=== PATIENT | female | born 1995 | race Caucasian/White ===

== ENCOUNTER 2017-05-04 09:57 | Emergency (ER) | payer BC, OTHER ==
[2017-05-04] MEDS ORDERED: Ketorolac 30 MG/ML SDV IM ONE (10:15)
--- NOTE | 2017-05-04 10:24 | EDM.PDOC ---
ED HPI GENERAL MEDICAL PROBLEM - General Chief Complaint: Lower Extremity Injury/Pain Stated Complaint: RT LEG PAIN Time Seen by Provider: 05/04/17 10:10 Source of Information: Reports: Patient History Limitations: Reports: No Limitations - History of Present Illness INITIAL COMMENTS - FREE TEXT/NARRATIVE: This 22 yo female patient reports to the ED with pain in her right buttocks radiating down her right lateral thigh to her medial posterior calf. The patient reports she noticed some increased pain over the past 3 days, but her pain got much worse today. The patient reports she was unable to walk this morning due to pain and muscle spasms. The patient has been attempting to do stretching exercises, but has continued to have increased discomfort. The patient has not taken any medications for temporary symptom relief. The patient reports a previous injury to the same area previously. 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 Onset: Gradual Duration: Day(s): (3), Constant, Getting Worse Location: Reports: Lower Extremity, Right Quality: Reports: Ache, Sharp, Other (muscle spasms) Severity: Moderate Improves with: Reports: None Context: Reports: Activity Right Leg Pain Score (Numeric/FACES): 8 - Related Data Allergies Allergy/AdvReac Type Severity Reaction Status Date / Time No Known Allergies Allergy Verified 05/04/17 10:07 Home Meds: Home Meds Control Pill 05/04/17 [History] Cholecalciferol (Vitamin D3) [Vitamin D] 5,000 unit PO 05/04/17 [History] Review of Systems - Review of Systems Review Of Systems: ROS reveals no pertinent complaints other than HPI. ED EXAM, GENERAL - Physical Exam Exam: See Below Exam Limited By: No Limitations General Appearance: Alert, WD/WN, Moderate Distress, Thin Eye Exam: Bilateral Eye: EOMI, Normal Inspection, PERRL Ears: Normal External Exam, Normal Canal, Hearing Grossly Normal, Normal TMs Nose: Normal Inspection, Normal Mucosa, No Blood Throat/Mouth: Normal Inspection, Normal Lips, Normal Teeth, Normal Gums, Normal Oropharynx, Normal Voice, No Airway Compromise Head: Atraumatic, Normocephalic Respiratory/Chest: No Respiratory Distress, Normal Breath Sounds, No Accessory Muscle Use Cardiovascular: Normal Peripheral Pulses, Regular Rate, Rhythm, No Edema GI/Abdominal: Normal Bowel Sounds, Soft, Non-Tender, No Organomegaly, No Distention, No Abnormal Bruit, No Mass (Female) Exam: Deferred Rectal (Female) Exam: Deferred Back Exam: Decreased Range of Motion (right lower extremity), Muscle Spasm ( right glut and posterior thigh), Other (The patient was only able to get to about 10 degrees on a straight leg raise.) Extremities: Leg Pain (right posterior buttocks), Limited Range of Motion Neurological: Alert, Oriented, CN II-XII Intact, Normal Cognition, Abnormal Gait (due to pain and muscle spasm in right buttocks) Psychiatric: Normal Affect, Normal Mood Skin Exam: Warm, Dry, Intact, Normal Color, No Rash Lymphatic: No Adenopathy Course - Vital Signs Last Recorded V/S: Last Vital Signs Temp 36.7 C 05/04/17 10:09 Pulse 92 05/04/17 10:09 Resp 16 05/04/17 10:09 BP 132/93 H 05/04/17 10:09 Pulse Ox 100 05/04/17 10:09 - Orders/Labs/Meds Orders: Active Orders 24 hr Category Date Time Status Orphenadrine [Norflex] Med 05/04/17 10:15 Ordered 60 mg IM Q12H Medication Orders Orphenadrine Citrate (Norflex) 60 mg IM Q12H STAN Meds: Medications Generic Name Dose Route Start Last Admin Trade Name Freq PRN Reason Stop Dose Admin Orphenadrine Citrate 60 mg 05/04/17 10:15 Norflex IM Q12H STAN Discontinued Medications Generic Name Dose Route Start Last Admin Trade Name Freq PRN Reason Stop Dose Admin Ketorolac Tromethamine 60 mg 05/04/17 10:15 Toradol IM 05/04/17 10:16 ONETIME ONE Departure - Departure Time of Disposition: 10:27 Disposition: Home, Self-Care 01 Condition: Fair Clinical Impression: SI (sacroiliac) joint inflammation, Muscle spasm of right lower extremity - Discharge Information Instructions: Sacroiliac Joint Dysfunction, Muscle Cramps and Spasms, Easy-to- Read Forms: ED Department Discharge Care Plan Goals: The patient was advised of the examination results during the visit. The patient was given injections of Toradol (60 mg) and Norflex (60 mg) while in the ED. The patient was discharged with a script for Toradol (10 mg) #20 to take 1 by mouth every 6 hours and Flexeril (10 mg) #20 to take 1 by mouth at bedtime as needed. The patient was encouraged to continue to rest and ice the area. The patient also may do gentle stretching exercises. If the patient has any additional symptoms or concerns, the patient should follow-up with her primary care facility or return to the emergency department. - My Orders Last 24 Hours: My Active Orders 05/04/17 10:15 Orphenadrine [Norflex] 60 mg IM Q12H - Assessment/Plan Last 24 Hours: My Active Orders 05/04/17 10:15 Orphenadrine [Norflex] 60 mg IM Q12H
[2017-05-04 10:33] VITALS: BP 113/70
== END 2017-05-04 10:45 | disposition home or self-care (01) ==
LOC: DL.ED 09:57
DX: M46.1 Sacroiliitis, not elsewhere classified (principal); M62.838 Other muscle spasm
CPT/HCPCS: 96372; 99283; J1885; J2360

== ENCOUNTER 2017-05-04 19:34 | Emergency (ER) | payer BC, OTHER ==
[2017-05-04] MEDS ORDERED: Promethazine 25 MG/ML SDV IM ONE (20:36)
[2017-05-04] MEDS ORDERED: Butorphanol 2 MG/ML SDV IM ONE (20:36)
--- NOTE | 2017-05-04 20:42 | EDM.PDOC ---
ED HPI GENERAL MEDICAL PROBLEM - General Chief Complaint: Lower Extremity Injury/Pain Stated Complaint: PAIN ON RT SIDE, [id number] Time Seen by Provider: 05/04/17 20:38 Source of Information: Reports: Patient History Limitations: Reports: No Limitations - History of Present Illness INITIAL COMMENTS - FREE TEXT/NARRATIVE: been having right LBP going down from buttock to legs past few days but does do lot of bending & lifting at work. normally sees DLakeisha who told her it's piriformis muscle spasms. Treatments PHOTO PRINTER: Reports: Other Medication(s) Other Treatments PHOTO PRINTER: flexeril. and heat. Right Leg Pain Score (Numeric/FACES): 8 - Related Data Allergies Allergy/AdvReac Type Severity Reaction Status Date / Time No Known Allergies Allergy Verified 05/04/17 19:50 Home Meds: Home Meds Control Pill 1 cap PO DAILY 05/04/17 [History] Cholecalciferol (Vitamin D3) [Vitamin D] 2,000 unit PO DAILY 05/04/17 [History] Past Medical History - Past Health History Medical/Surgical History: Denies Medical/Surgical History Musculoskeletal History: Reports: Other (See Below) Other Musculoskeletal History: sees chiropracter for chronic back/hip Neurological History: Reports: Migraines Psychiatric History: Reports: Anxiety, Depression Dermatologic History: Reports: Other (See Below) Other Dermatologic History: rosashia - Past Surgical History HEENT Surgical History: Reports: Oral Surgery, Other (See Below) Other HEENT Surgeries/Procedures: wisdom teeth removed Social & Family History - Family History Family Medical History: Noncontributory - Tobacco Use Smoking Status *Q: Never Smoker Second Hand Smoke Exposure: No - Caffeine Use Caffeine Use: Reports: Coffee - Recreational Drug Use Recreational Drug Use: No Review of Systems - Review of Systems Review Of Systems: ROS reveals no pertinent complaints other than HPI. ED EXAM, GENERAL - Physical Exam Exam: See Below Exam Limited By: No Limitations General Appearance: Alert, WD/WN, Mild Distress, Other (distraught) Ears: Hearing Grossly Normal Throat/Mouth: Normal Voice, No Airway Compromise Head: Atraumatic Neck: Non-Tender, Full Range of Motion Respiratory/Chest: No Respiratory Distress Cardiovascular: Regular Rate, Rhythm GI/Abdominal: Soft, Non-Tender Back Exam: Muscle Spasm, Paraspinal Tenderness, Other (right LS sciatica, gait limited to pain) Extremities: Normal Inspection Neurological: Alert, Oriented, Normal Cognition, No Motor/Sensory Deficits Psychiatric: Anxious Skin Exam: Warm, Dry, Normal Color Lymphatic: No Adenopathy Course - Vital Signs Last Recorded V/S: Last Vital Signs Temp 36.6 C 05/04/17 19:43 Pulse 69 05/04/17 19:43 Resp 16 05/04/17 19:43 BP 113/67 05/04/17 19:43 Pulse Ox 100 05/04/17 19:43 - Orders/Labs/Meds Orders: Active Orders 24 hr Category Date Time Status Butorphanol [Stadol] Med 05/04/17 20:36 Once 2 mg IM ONETIME ONE Promethazine [Phenergan] Med 05/04/17 20:36 Once 25 mg IM ONETIME ONE Departure - Departure Time of Disposition: 20:41 Disposition: Home, Self-Care 01 Condition: Good Clinical Impression: Lumbar radiculopathy, right - Discharge Information Instructions: Muscle Strain, [id number] Forms: ED Department Discharge Additional Instructions: 1) avoid bending lifting straining next 7 days 2) try ice or heat to sore areas 3) see clinic for MRI SCAN of lumbar 4) recheck if there is any change or concern - My Orders Last 24 Hours: My Active Orders 05/04/17 20:36 Butorphanol [Stadol] 2 mg IM ONETIME ONE Promethazine [Phenergan] 25 mg IM ONETIME ONE - Assessment/Plan Last 24 Hours: My Active Orders 05/04/17 20:36 Butorphanol [Stadol] 2 mg IM ONETIME ONE Promethazine [Phenergan] 25 mg IM ONETIME ONE
[2017-05-04 21:09] VITALS: BP 108/70
== END 2017-05-04 21:11 | disposition home or self-care (01) ==
LOC: DL.ED 19:34
DX: M54.16 Radiculopathy, lumbar region (principal); Z98.890 Other specified postprocedural states; M46.1 Sacroiliitis, not elsewhere classified; M62.838 Other muscle spasm
CPT/HCPCS: 96372; 99282; 99283; J0595; J1885; J2360; J2550